=== PATIENT | male | born 1945 | race Caucasian/White ===

== ENCOUNTER 2018-05-04 08:18 | Day surgery (SDC) | payer BC, MEDICARE ==
[2018-05-04] MEDS ORDERED: LACTATED RINGERS 1,000 ML IV ONE (08:33)
[2018-05-04] MEDS ORDERED: LACTATED RINGERS 1,000 ML IV.SOLN IV ONE ×2 (08:48)
[2018-05-04] MEDS ORDERED: MIDAZOLAM HCL 2 MG/2 ML VIAL ONE (08:48)
[2018-05-04] MEDS ORDERED: fentaNYL CITRATE/PF 100 MCG/2 ML INJ. ONE ×3 (08:48→10:19)
[2018-05-04] MEDS ORDERED: KETAMINE HCL 10 MG/ML ML IJ ONE (08:48)
[2018-05-04] MEDS ORDERED: ceFAZolin SODIUM 1 GM VIAL ONE (08:48)
[2018-05-04] MEDS ORDERED: PROPOFOL 200 MG/20 ML VIAL IV ONE (08:48)
== END 2018-05-04 10:58 | disposition home or self-care (01) ==
LOC: OPSURG 08:18
PROVIDERS: ATTEND Physical Medicine & Rehabilitation
DX: L03.818 Cellulitis of other sites (principal)
CPT/HCPCS: 12020; 87070; 87205; J0690; J1815; J2250; J2704; J3010; J7120